=== PATIENT | female | born 1980 | race Caucasian/White ===

== ENCOUNTER 2021-06-18 20:06 | Emergency (ER) | payer OTHER, MEDICAID ==
[~2021-06-18] VITALS: Ht 157.5 cm; Wt 127.0 kg
[2021-06-18 20:38] VITALS: BP 155/91
[2021-06-18] MEDS ORDERED: APAP W/CODEINE1 TA2 PO (20:42)
[2021-06-18] MEDS ORDERED: CENTANY30 GM TOP (20:42)
[2021-06-18] MEDS ORDERED: DOXYCYCLINE 10100 MG PO (20:42)
== END 2021-06-18 20:54 | disposition home or self-care (01) ==
LOC: M.ERS 20:06
DX: L08.9 Local infection of the skin and subcutaneous tissue, unspecified (principal); L53.9 Erythematous condition, unspecified; Z98.890 Other specified postprocedural states; Z88.0 Allergy status to penicillin